=== PATIENT | female | born 1945 | race Caucasian/White ===

== ENCOUNTER 2018-01-16 21:18 | Emergency (ER) | payer OTHER ==
[~2018-01-16] VITALS: Ht 165.1 cm; Wt 72.6 kg
[~2018-01-16 21:18] MED LIST: AUGMENTIN 875875 MG PO; LEVOTHYROXIN0.025 MG; SUDAFED PE SIN1 EACH PO
[2018-01-16] MEDS ORDERED: NORCO 5-325 TA1 EACH PO (22:18)
[2018-01-16 22:43] VITALS: BP 163/71
== END 2018-01-16 22:44 | disposition home or self-care (01) ==
LOC: ER 21:18
DX: S93.492A Sprain of other ligament of left ankle, initial encounter (principal); E03.9 Hypothyroidism, unspecified; W01.0XXA Fall on same level from slipping, tripping and stumbling without subsequent striking against object, initial encounter; Y92.89 Other specified places as the place of occurrence of the external cause; Y93.89 Activity, other specified; Y99.8 Other external cause status

== ENCOUNTER 2019-02-11 06:59 | Emergency (ER) | payer OTHER ==
[~2019-02-11] VITALS: Ht 167.6 cm; Wt 73.9 kg
[~2019-02-11 06:59] MED LIST changes: +NORCO 5-325 TA1 EACH PO
[2019-02-11] MEDS ORDERED: NALTREXONE HCL5 GM PO (07:13)
[2019-02-11 09:13] VITALS: BP 160/79
== END 2019-02-11 09:13 | disposition home or self-care (01) ==
LOC: ER 06:59
DX: J04.0 Acute laryngitis (principal); K12.2 Cellulitis and abscess of mouth; E03.9 Hypothyroidism, unspecified